=== PATIENT | male | born 1945 | race Caucasian/White ===

== ENCOUNTER 2017-06-27 20:09 | Emergency (ER) | payer OTHER ==
[2017-06-27] MEDS ORDERED: Ondansetron HCl/PF 4 MG/2 ML Vial ONE (20:21)
[2017-06-27] MEDS ORDERED: Morphine 4 MG/ML VIAL ONE (20:21)
--- NOTE | 2017-06-27 20:53 | RAD ---
RIGHT SHOULDER 3 VIEWS: Date: 06/27/17 HISTORY: Shoulder pain. COMPARISON: None. FINDINGS: There is anterior subcoracoid shoulder dislocation. Large Hill-Sachs deformity. There appears to be a small chip of bone projecting over the glenohumeral joint. IMPRESSION: Anterior subcoracoid shoulder dislocation with small chip of bone projecting over the glenohumeral pina int. Post reduction radiographs suggested. POS: HOME
[2017-06-27] MEDS ORDERED: Propofol 500 MG/50 ML VIAL ONE (20:55)
[2017-06-27] MEDS ORDERED: Adacel (T-DAP) 0.5 ML VIAL ONE (21:33)
--- NOTE | 2017-06-27 21:54 | RAD ---
2 VIEWS RIGHT SHOULDER: Date: 06/27/17 HISTORY: Post reduction. COMPARISON: 06/27/17 at 2038 hours. FINDINGS: There has been interval reduction of the previously noted right anterior shoulder dislocation. There is no evidence of a dislocation on this exam. No obvious fracture is appreciated on the provided imag es. IMPRESSION: Interval reduction of previously noted right anterior shoulder dislocation. No dislocation or fractur e is seen on this exam. The tiny osseous fragment seen on the prior exam is not appreciated on this s tudy. POS: [facility]
== END 2017-06-27 22:49 | disposition home or self-care (01) ==
LOC: ERS 20:09
DX: S43.015A Anterior dislocation of left humerus, initial encounter (principal); E78.5 Hyperlipidemia, unspecified; I10 Essential (primary) hypertension; Z79.899 Other long term (current) drug therapy; W20.8XXA Other cause of strike by thrown, projected or falling object, initial encounter
CPT/HCPCS: 23650; 90471; 90715; 94760; 96374; 96375; J2270; J2405; J2704